=== PATIENT | female | born 1990 | race Caucasian/White ===

== ENCOUNTER 2019-02-13 15:48 | Emergency (ER) | payer SELFPAY ==
--- OUTSIDE RECORDS SUMMARY | 2019-02-13 16:23 | XMS REPORT | Continuity of Care Document ---
:1990 Author Organization [facility] Address [address], [place] [id number] Phone Care Team Providers Name Role Phone Ayah Griffin Unavailable Unavailable Allergies, Adverse Reactions, Alerts Substance Reaction Status amoxicillin Anaphylaxis Active Penicillins Anaphylaxis Active POTASSIUM CLAVULANATE Anaphylaxis Active AMOXICILLIN TRIHYDRATE Anaphylaxis Active Medications Medication Instructions Dosage Effective Dates Status Comments (start - stop) metronidazole 500 mg 1 tab po bid x 7d - Active tablet (#14) VITAMINS Not Available - Active (unknown strength) Problems Condition Effective Dates (start - Clinical Status Comments stop) Acute vaginitis Weeks of gestation of not specified Encounter for test, result positive Frequency of micturition Encounter for test, result negative Human immunodeficiency virus [HIV] - counseling Encounter for initial prescription of contraceptive pills Acute vaginitis 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 Other Entry Level Programmer.Svc. STI Entry Level Programmer.Svc. POS PREG DESIRED NOW REFERRAL FOR Results Test Name Date and Time Measure Units Reference Range Abnormal Flag Status Comments Panel Description: High Sensitivity Urine Test Final High Sensitivity Urine 15:04:21 PositiveInternal Quality Final Test Control: Positive Panel Description: Wet Mount Final Wet Mount 15:02:25 Hyphae/Brianda: noBudding yeast: Final noTrich: noClue cells: yes (>=20%)WBCs: noAmine/Whiff test: positivepH: 4.5 Advance Directives Directive Yes / No Effective Date File Name No information Encounters Encounter Practice Location Reason(s) Diagnoses Date Provider Providers Description For Visit Copied on Encounter OFFICE/OUTPA [facility] Vaginal Acute [place] Referring TIENT VISIT, [facility] [place] Discharge vaginitisWeeks of 4-201 Ayah. Provider: NITIN Bach a/o Odor gestation of [address] (chief not [place], [facility], [address] complaint) [address], [address] for test, [place], [address], , [place], Test result positive [place], [place], [place], ([place] [address], [place], [address]. [id number], complaint) [place]. tel:+[phone] tel:[phone] tel:[phone] [facility] Frequency of Robert Referring [facility] [place] micturitionEncounte 2-201 Louann. Provider: Mikala r for 8 [address] test, result [place], [place], [address], [address] immunodeficiency [place], [address], [place], [place], virus [HIV] [place], [place], [place], counseling [address], [place], [address]. [id number], [place]. tel:+ tel:[phone] tel:[phone] [facility] Encounter for [facility] [place] initial 6-201 Andra. Southern prescription of [address] contraceptive [place], [address], [address] [place] vaginitis [place], , [place], [place], [address], [id number], [place]. [place] tel:[phone] [facility] Encntr for c d stripper exam Sep- [facility] (general) (routine) Maria. [facility] w/o abn [address] findingsEncounter [place] [facility], [address], [address] [place] for malignant [place], , [place], neoplasm [place], [place], [place] [address]. [id number], oth general cnsl tel:[phone] [place] and advice on [phone] tel:[phone] for surveillance of contraceptive pills [facility] Encounter for [place] surveillance of [place]. [facility] contraceptive pills [address] [place], [address] [place], , [place], [place], [address]. [id number], tel:[phone] [place] [phone] tel:[phone] [facility] Subacute and Nov- [place]on [facility] chronic Alessandro. [facility] vaginitisNausea [address] [place], [address] [place], , [place], [place], [address]. [id number], tel:[phone] [place] [phone] tel:[phone] [facility] Noninflammatory Jun- [facility] disorder of vagina, Alessandro. [facility] unspecified [address] [place], [address] [place] [place], St, [place], [place], [address]. [id number], tel:[phone] [place] [phone] tel:[phone] Family History Family Member Diagnosis Age At Onset 1st degree relative No hx of cancer of breast, colon, endometrium or ovary 1st degree relative No hx of venous thromboembolism Immunizations Vaccine Date Status Comments No Known Immunization history Payers Payer name Insurance type Covered democrat ID Authorization(s) No information Social History Type Description Quantity Date Captured Comments Alcohol Use Details Unknown Caffeine Use Details Unknown Tobacco Use Status Current non-smoker Smoking Status Never smoker Non-Smoking Tobacco : No Details Available : No Details Available 2018 Use Details Sex Female Vital Signs Date / Height Weight BMI Pulse Blood Temperature Respiratory Body Head BMI Pulse Inhaled Time: Rate Pressure Rate Surface Circumference percentile Ox Ox Area No information Chief Complaint And Reason For Visit Most recent encounter only, dated 02/11/2019 14:30'. Vaginal Discharge a /o Odor (chief complaint) Test (chief complaint) Reason For Referral Reason For Referral No information Plan Of Treatment Date Type Action Status Appointment [facility] CANCELLED History Of Present Illness Encounter Date Complaint History Of Present Illness No information Functional Status Date Functional Assessment No information Medications Administered Medication Instructions Dosage Effective Dates (start - stop) Status Comments No information Instructions Date Instruction Additional Information No information Assessments Type Assessment Date assessment Acute vaginitis assessment Weeks of gestation of not specified assessment Encounter for test, result positive Goals Health Concern Goal Type Priority Status Date No information Medical Equipment Description Device Huntley Device Identifier Effective Dates (start - stop ) Status No information Mental Status Date Cognitive Assessment Normal Orientation Health Concerns Observation Date No information Concern Status Date No information
--- NOTE | 2019-02-13 16:25 | ED ---
- HPI Summary HPI Summary: A 28 y/o female who is 5 weeks presents to [facility] with a chief complaint of intermittent back and lower abdominal pain today. She rates her pain as a 6/10 in severity. She went to [facility] and claims that they were concerned for ectopic . This is her first . She denies any vaginal bleeding or discharge. She also reports a lot of nausea. - History of Current Complaint Chief Complaint: EDOBProblems Stated Complaint: 5 WEEKS PREG LOW BACK PAIN Time Seen by Provider: 02/13/19 16:21 Hx Obtained From: Patient Chief Complaint: Pain, Other: - concern for ectopic Onset/Duration: Started Hours Ago, Still Present Timing: Intermittent, Lasting Minutes Severity: Moderate Current Severity: Moderate Pain Intensity: 6 - out of 10 Location of Pain: Other: - back and lower abominal pain Character: Other: - pain radiating to back Aggravating Factors: Nothing Alleviating Factors: Nothing Associated Signs and Symptoms: Positive: Back Pain, Nausea. Negative: Fever, Vaginal Bleeding or Discharge - Allergies/Home Medications Allergies/Adverse Reactions: Allergies Allergy/AdvReac Type Severity Reaction Status Date / Time amoxicillin Allergy See Comment Verified 02/13/19 16:07 Home Medications: Home Medications Metronidazole 500 mg PO BID 02/13/19 [History Confirmed 02/13/19] PMH/Surg Hx/FS Hx/Imm Hx Endocrine/Hematology History: Denies: Hx Diabetes Cardiovascular History: Denies: Hx Hypercholesterolemia, Hx Hypertension Infectious Disease History: No Infectious Disease History: Denies: Traveled Outside the [place] in Last 30 Days - Family History Known Family History: Positive: Other - GIST- father - Social History Alcohol Use: None Substance Use Type: Reports: None Smoking Status (MU): Never Smoked Tobacco Review of Systems Negative: Fever Positive: Abdominal Pain, Nausea Positive: other - negative: vaginal bleeding or discharge Positive: Myalgia - back pain All Other Systems Reviewed And Are Negative: Yes Physical Exam - Summary Physical Exam Summary: VITAL SIGNS: Reviewed. GENERAL: Patient is a well-developed and nourished FEMALE who is lying comfortable in the stretcher. Patient is not in any acute respiratory distress. HEAD AND FACE: No signs of trauma. No ecchymosis, hematomas or skull depressions. No sinus tenderness. EYES: PERRLA, EOMI x 2, No injected conjunctiva, no nystagmus. EARS: Hearing grossly intact. Ear canals and tympanic membranes are within normal limits. MOUTH: Oropharynx within normal limits. NECK: Supple, trachea is midline, no adenopathy, no JVD, no carotid bruit, no c- spine tenderness, neck with full ROM. CHEST: Symmetric, no tenderness at palpation LUNGS: Clear to auscultation bilaterally. No wheezing or crackles. CVS: Regular rate and rhythm, S1 and S2 present, no murmurs or gallops appreciated. ABDOMEN: Lower abdominal tenderness more on right than left. No signs of distention. No rebound no guarding, and no masses palpated. Bowel sounds are normal. EXTREMITIES: FROM in all major joints, no edema, no cyanosis or clubbing. NEURO: Alert and oriented x 3. No acute neurological deficits. Speech is normal and follows commands. SKIN: Dry and warm. - Physical Exam Triage Information Reviewed: Yes Vital Signs Reviewed: Yes Diagnostics - Vital Signs Vital Signs Temp Pulse Resp BP Pulse Ox 02/13/19 15:53 99.1 F 90 18 157/103 98 - Laboratory Result Diagrams: 02/13/19 16:51 02/13/19 16:51 Lab Statement: Any lab studies that have been ordered have been reviewed, and results considered in the medical decision making process. Course/Dx - Course Assessment/Plan: A 28 y/o female who is 5 weeks presents to [facility] with a chief complaint of intermittent back and lower abdominal pain today. She rates her pain as a 6/10 in severity. She went to [facility] and claims that they were concerned for ectopic . This is her first . She denies any vaginal bleeding or discharge. She also reports a lot of nausea. Test results without any significant abnormality, urinalysis is negative for UTI. Positive ketones. Patient is . In the ED course the patient was given IV fluids and Zofran for the nausea and vomiting. Blood test results without any significant abnormality except for potassium level of 3.4 glucose 103 and total bili is 2. Patient is still awaiting for the ultrasound report therefore the patient will be signed out to Dr. Mckeon to follow up the ultrasound report and further disposition the patient. - Diagnoses Provider Diagnoses: Discharge - Sign-Out/Discharge Documenting (check all that apply): Sign-Out Patient Signing out patient TO: Jaron Elfar - pending ultrasound Patient Received Moderate/Deep Sedation with Procedure: No - Discharge Plan Condition: Stable Disposition: HOME Patient Education Materials: (ED) Referrals: [facility] [Outside] - 3 Days Maribel Bright MD [Medical Doctor] - 3 Days Additional Instructions: PLEASE RETURN TO THE ED IMMEDIATELY FOR WORSENING OR CONCERNING SYMPTOMS. FOLLOW UP WITH YOUR PRIMARY CARE PHYSICIAN AND OBGYN WITHIN THREE DAYS. - Billing Disposition and Condition Condition: STABLE Disposition: Home - Attestation Statements Document Initiated by Scribe: Yes Documenting Scribe: Boaz Ontiveros Provider For Whom Scribe is Documenting (Include Credential): Anupam Buckley MD Scribe Attestation: I, Boaz Ontiveros, scribed for Anupam Buckley MD on 02/14/19 at 0731. Scribe Documentation Reviewed: Yes Provider Attestation: The documentation as recorded by the Boaz evans accurately reflects the service I personally performed and the decisions made by me, Anupam Buckley MD Status of Scribe Document: Viewed
[2019-02-13] MEDS ORDERED: Ondansetron INJ* 2 MG/ML VIAL IV ONE (16:34)
[2019-02-13] MEDS ORDERED: NS 0.9% 1000 ML** 1,000 ML IV ONE (16:34)
[2019-02-13 17:02] LABS: ABS Lymphocytes 1.8 10^3/ul (1.0-4.8); ABS Monocytes 0.5 10^3/ul (0-0.8); ABS Neutrophils 4.7 10^3/ul (1.5-7.7); Eosinophil % 0.3 %; Hematocrit 41 % (35-47); Hemoglobin 13.7 g/dL (12.0-16.0); Lymphocyte % 25.8 %; Mean Corpuscular HGB Conc 33 g/dL (31-36); Mean Corpuscular Hemoglobin 30 pg (27-31); Mean Corpuscular Volume 89 fL (80-97); Mean Platelet Volume 8.1 fL (7.4-10.4); Platelet Count 217 10^3/uL (150-450); Red Cell Distribution Width 13 % (10.5-15); White Blood Count 7.2 10^3/uL (3.5-10.8)
[2019-02-13 17:06] LABS: Urine Appearance Clear; Urine Bilirubin Negative (Negative); Urine Blood Negative (Negative); Urine Color Amber; Urine Glucose Negative (Negative); Urine Ketones Trace (Negative); Urine Nitrite Negative (Negative); Urine Protein Negative (Negative); Urine Specific Gravity 1.024 (1.010-1.030); Urine Urobilinogen Negative (Negative)
[2019-02-13 17:29] LABS: Albumin 4.5 g/dL (3.2-5.2); BUN/Creatinine Ratio 12.1 (8-20); Calcium 9.3 mg/dL (8.6-10.3); EGFR African American 149.8 (>60); EGFR Non-African American 123.8 (>60); Globulin 2.2 g/dL (2-4); Potassium 3.4 mmol/L (3.5-5.0); Total Protein 6.7 g/dL (6.4-8.9)
--- NOTE | 2019-02-13 19:12 | ED ---
Progress - Progress Note Progress Note: Patient is received as a sign out from Dr. Buckley to Dr. Mckeon at 1900 02/13/19 shift change pending transvaginal US results. TRANSVAGINAL US IMPRESSION: Early intrauterine with estimated gestational age of 5 weeks and 4 days. This report was reviewed by Dr. Mckeon. Course/Dx - Course Course Of Treatment: Patient is received as a sign out from Dr. Buckley to Dr. Mckeon at 1900 02/13/19 shift change pending transvaginal US results. TRANSVAGINAL US IMPRESSION: Early intrauterine with estimated gestational age of 5 weeks and 4 days. Patient will be discharged to home with PCP and OBGYN follow up. - Diagnoses Provider Diagnoses: Discharge - Sign-Out/Discharge Documenting (check all that apply): Patient Departure - discharge Patient Received Moderate/Deep Sedation with Procedure: No - Discharge Plan Condition: Stable Disposition: HOME Patient Education Materials: (ED) Referrals: Maribel Bright MD [Medical Doctor] - 3 Days Care [facility] [Outside] - 3 Days Additional Instructions: PLEASE RETURN TO THE ED IMMEDIATELY FOR WORSENING OR CONCERNING SYMPTOMS. FOLLOW UP WITH YOUR PRIMARY CARE PHYSICIAN AND OBGYN WITHIN THREE DAYS. - Attestation Statements Document Initiated by Scribe: Yes Documenting Scribe: CAMRON GTZ Provider For Whom Giulianaibmartha is Documenting (Include Credential): YURI MCKEON MD Scribe Attestation: CAMRON Forde, scribed for YURI MCKEON MD on 02/13/19 at 2023. Status of Scribe Document: Ready
[2019-02-13 20:17] VITALS: BP 136/98
== END 2019-02-13 20:16 | disposition home or self-care (01) ==
LOC: ED 15:48
DX: O26.891 Other specified pregnancy related conditions, first trimester (principal); R10.30 Lower abdominal pain, unspecified; M54.5 Low back pain; R11.0 Nausea; Z3A.01 Less than 8 weeks gestation of pregnancy; Z88.0 Allergy status to penicillin
CPT/HCPCS: 36415; 76817; 80053; 81003; 84702; 85025; 86850; 86900; 86901; 96360; 99282; J2405

== ENCOUNTER 2019-10-09 12:16 | Inpatient (IN) | payer BC ==
[2019-10-09] MEDS ORDERED: Buffered Lidocaine 1% SYRIN* 1 ML/SYRINGE INTRADERM ONE (13:08)
[2019-10-09] MEDS ORDERED: Lactated Ringers 1000 ML Bag* 1,000 ML IV ONE (13:08)
[2019-10-09] MEDS ORDERED: Misoprostol TAB* 100 MCG PO ONE (13:26)
[2019-10-09] MEDS ORDERED: Misoprostol TAB* 100 MCG ONE (13:50)
[2019-10-09] MEDS ORDERED: Lactated Ringers 1000 ML Bag* 1,000 ML IV SCH (14:00)
--- NOTE | 2019-10-09 14:16 | HP ---
General Information - Reason for Visit Pt here with prelabor rupture of membranes which occurred at 0000 today. Pt with intermittent ctx but not in active labor. - General Information Maternal Age: 29 Grav: 1 Para: 0 SAB: 0 IEA: 0 Estimated Due Date: 10/12/19 Determined By: LMP Gestational Age in Weeks/Days: 39 4/7 Maternal Blood Type and Rh: A Positive - Results this Serology/RPR Result: Non-Reactive Rubella Result: Immune HBsAg Result: Negative HIV Result: Negative GBS Culture Result: Negative Past Medical History Delivery History: See Records - Primigravida Pertinent Past Medical History: See Records - superficial venous thrombosis Past Medical History Comment: Pentec[employer] (refuses all blood products) Pertinent Past Surgical History: None Pertinent Family History: Non-Contributory - Antepartal Records Antepartal Records: Reviewed, Complicated by: - superficial venous thrombosis Review of Systems Constitutional: Comfortable CV Complaint: No Respiratory: Shortness of Breath: No Gastrointestinal: No Nausea/Vomiting, Normal Bowel Movement Genitourinary: Leaking Fluid, No Dysuria, No Bleeding Musculoskeletal: No Epigastric Pain, Contractions Neurological: No Headache, No Visual Changes Movement: Normal Exam Allergies/Adverse Reactions: Allergies amoxicillin Allergy (Verified 02/13/19 16:07) See Comment chest pain, nausea metronidazole Allergy (Verified 10/09/19 13:07) Unknown Reaction Details T-98.7, P-76, R-20, BP-139/87, O2-100% - Measurements Height: 6 ft 1 in Weight: 86.636 kg Weight in lbs: 191.824751 Body Mass Index (BMI): 25.2 Pre- Weight: 66.224 kg Weight Gained This : 45 lbs and 0 ozs - Exam Breast: Breast Exam Deferred CVA: No CVA Tenderness Extremities: No Edema Heart: Normal Rhythm/Heart Sounds HEENT: No Significant Findings Lungs: Clear Bilaterally Rectal: Rectal Exam Deferred Reflexes: DTR 2+ Thyroid: No Thyromegaly - Abdominal Exam Abdomen Exam: Non-Tender, Fundal Height Consistent with Dates - Ultrasound/Biophysical Profile Ultrasound Status: Not Done Targeted Exam Findings See L&D Outpatient Visit Provider Note for Findings: N/A Estimated Weight: 7.5# Cervical Exam: 1cm - 1-2 cm Effacement: 60% Station: -2 Presenting Part: Vertex Membrane Status: SROM Amniotic Fluid Evaluation: Gross Rupture Bleeding/Discharge: None EFM Findings - External Monitor Findings Baseline Heart Rate: 125 External Monitor Findings: Accelerations Present, No Pattern of Variable or Late Decelerations, Variability Moderate, Baseline Stable Contractions: Irregular, Mild Assessment/Plan - Assessment 29 year old at 39 4/7 weeks gestation with prelabor rupture of membranes. No evidence of chorioamnionitis or acidemia. BPs mildly elevated. - Plan Plan: Cervical Ripening, Admit - Anticipate Vaginal Delivery Plan Comment: Discissed options for proceeding with pt and . Advised recommend augmentation of labor as no active labor has ensued and we are > 12 hours post ROM. Discussed Pitocin vs misoprostol. With pt's agreement will do one dose of misoprostol and consider Pitocin 4 hours later if needed. - Date/Time of Admission Date of Admission: 10/09/19 Time of Admission: 13:54
[2019-10-09 14:38] LABS: Urine Appearance Cloudy; Urine Bilirubin Negative (Negative); Urine Blood 3+ (Negative); Urine Color Yellow; Urine Glucose Negative (Negative); Urine Ketones Negative (Negative); Urine Nitrite Negative (Negative); Urine Protein Negative (Negative); Urine Specific Gravity 1.002 (1.010-1.030); Urine Urobilinogen Negative (Negative)
[2019-10-09 14:40] LABS: Urine Bacteria 1+ (Absent); Urine Red Blood Cell 1+(3-5/hpf) (Absent); Urine Squamous Epithelial Cell Present (Absent); Urine White Blood Cell 2+(11-20/hpf) (Absent)
[2019-10-09 15:30] LABS: ABS Basophils 0.1 10^3/ul (0-0.2); ABS Lymphocytes 2.2 10^3/ul (1.0-4.8); ABS Monocytes 0.6 10^3/ul (0-0.8); ABS Neutrophils 5.6 10^3/ul (1.5-7.7); Eosinophil % 0.4 %; Hematocrit 40 % (35-47); Hemoglobin 13.9 g/dL (12.0-16.0); Mean Corpuscular HGB Conc 35 g/dL (31-36); Mean Corpuscular Hemoglobin 32 pg (27-31); Mean Corpuscular Volume 90 fL (80-97); Mean Platelet Volume 9.9 fL (7.4-10.4); Platelet Count 172 10^3/uL (150-450); Red Blood Count 4.43 10^6 /uL (3.70-4.87); Red Cell Distribution Width 14 % (10-15); White Blood Count 8.4 10^3/uL (3.5-10.8)
--- NOTE | 2019-10-09 15:37 | PN ---
Progress Note - Progress Note Date of Service: 10/09/19 SOAP: Subjective: Pt reports feeling some ctx, some stronger than other, tolerable. Objective: FHR: Single deceleration lasting 3 minutes to yasemin of 90. Currently Baseline 125/ moderate variability/ + accels/ no decels UCs: 5-10 minutes, mild BP: 141/83 Urine dip negative for protein Assessment: Pt with ROM x 15 hours undergoing cervical ripening/ augmentation of labor, with elevated BPs and negative proteinuria. Currently FHR not reflective of acidemia. Plan: Will continue to monitor FHR continuously for at least another hour. Continue to monitor ctx pattern. If not in active labor at 4 hours post misoprostol will recommend Pitocin.
[2019-10-09 16:12] LABS: ALT 13 U/L (7-52); Albumin 3.3 g/dL (3.2-5.2); Albumin/Globulin Ratio 1.2 (1-3); Alkaline Phosphatase 149 U/L (34-104); BUN/Creatinine Ratio 13.2 (8-20); Blood Urea Nitrogen 7 mg/dL (6-24); CO2 Carbon Dioxide 20 mmol/L (22-32); Chloride 106 mmol/L (101-111); EGFR Non-African American 136.4 (>60); Globulin 2.7 g/dL (2-4); Glucose 91 mg/dL (70-100); Sodium 137 mmol/L (135-145)
[2019-10-09 16:38] LABS: Urine Benzodiazepine Screen None Detected (None Detect); Urine Opiates Screen None Detected (None Detect)
[2019-10-09 16:48] LABS: Anion Gap 11 mmol/L (2-11)
[2019-10-09] MEDS ORDERED: Labetalol IV* 5 MG/ML 20 ML VIAL IV PUSH ONE (18:16)
[2019-10-09] MEDS ORDERED: Labetalol IV* 5 MG/ML 20 ML VIAL ONE (18:19)
[2019-10-09] MEDS ORDERED: OBEPIDURAL* 250 ML EPIDURAL ONE (18:26)
--- NOTE | 2019-10-09 18:35 | PN ---
Progress Note - Progress Note Date of Service: 10/09/19 SOAP: Subjective: Pt increasingly uncomfortable with ctx. Objective: Pt with elevated BPs as high as 160/95, repeatedly. Consulted with Dr. Ferrell, recommended administration of IV Labatelol 20 mg. Most recent BP 141/94. FHR: Baseline 125/ moderate variability/ + accels/ no decels UCs: 4-6 minutes Cervix: 3-4cm/ 80%/ -2/ vtx Membranes ruptured 19 hours Temp 98.8 Assessment: Pt with gestational hypertension without proteinuria. No evidence of acidemia. Making good cervical change, appears to be getting into active labor. Plan: Monitor BPs closely. Epidural for pain relief. Continue to consult with Dr. Ferrell re management. Consider Pitocin if ctx space out following epidural.
[2019-10-09] MEDS ORDERED: Famotidine TAB* 20 MG PO PRN (21:12)
[2019-10-09] MEDS ORDERED: Sodium Citrate/Citric Acid* 15 ML UDC PO PRN (21:12)
--- NOTE | 2019-10-09 21:13 | PN ---
Progress Note - Progress Note Date of Service: 10/09/19 SOAP: Subjective: Pt comfortable with epidural, going to try to sleep. Objective: Cervical exam deferred as pt continuing to contract and has had ruptured membranes x 21 hours FHR: Baseline 120/ moderate variability/ + accels/ no decels UCs: 4-6 minutes BP: 127/83 Temp: 97.4 Assessment: Pt comfortable, no evidence of acidemia or chorioamnionitis. BP stable. Plan: Will recheck cervix in an hour, consider Pitocin augmentation if ctx space out or if minimal/ no cervical change.
[2019-10-09] MEDS ORDERED: OBEPIDURAL* 250 ML EPIDURAL SCH (22:00)
--- NOTE | 2019-10-09 22:09 | PN ---
Progress Note - Progress Note Date of Service: 10/09/19 Note: Pt resting comfortably in bed. Ctx every 3-7 minutes. FHR Category I. Will do trial of low dose Pitocin augmentation. Cervical exam deferred at this time.
[2019-10-09] MEDS ORDERED: Oxytocin in LR* 20 UNITS/1,000 ML BAG IVPB SCH (23:00)
--- NOTE | 2019-10-09 23:31 | PN ---
Progress Note - Progress Note Date of Service: 10/09/19 SOAP: Subjective: Pt resting comfortably with epidural. Objective: FHR: Baseline 120/ moderate variability/ early decels/ no accels UCs: 2-6 minutes, coupling BP: 113/64 Temp: 97.4 Pitocin at 2 mu/min Assessment: Pt with prolonged rupture of membranes x 23.5 hours. Comfortable. No evidence of acidemia or chorioamnionitis. Plan: Continue Pitocin augmentation. Recheck cervix in a couple hours or as needed.
--- NOTE | 2019-10-10 02:56 | PN ---
Progress Note - Progress Note Date of Service: 10/10/19 SOAP: Subjective: Pt reports increased sense of pressure with ctx but remains comfortable Objective: Cervix: fully dilated, +1, vtx FHR: Baseline 120/ moderate variability/ + accels/ occasional variable decels UCs: 2-5 minutes BP: 139/91 Temp: 98.1 Assessment: Pt fully dilated and ready to push. Variable decels suggest possible cord compression, do not suspect acidemia at this time. Plan: Begin pushing efforts. Anticipate .
[2019-10-10] MEDS ORDERED: Glycerin ADULT SUPP PR PRN (04:17)
[2019-10-10] MEDS ORDERED: Dibucaine 1% 28.35 GM TUBE PR PRN (04:17)
[2019-10-10] MEDS ORDERED: Misoprostol TAB* 200 MCG PR ONE (04:17)
[2019-10-10] MEDS ORDERED: Witch Hazel PAD* JAR TOPICAL PRN (04:17)
--- NOTE | 2019-10-10 04:40 | PROCNOTE ---
[facility] OB: Delivery Note - Delivery A Date of : 10/10/19 Time of : 03:48 Hobbs Sex: Female Weight at : 3.435 kg Score 1 Minute: 9 Score 5 Minutes: 9 Gestational Age in Weeks and Days at Delivery: 39 Weeks and 5 Days Delivery Method: Spontaneous Vaginal Labor: Spontaneous Did Patient attempt ?: N/A, No Previous Amniotic Fluid: Clear Anesthesia/Analgesia: CEI for Labor Delivered By: Gem [facility] Nursery Level of Nursery: Regular/Bedside - Perineum Perineal Injury: None/Intact Perineal Repair: None - Events Delivery Events of Note: Pitocin During Labor, Post- Bleeding - Meds Given , Other - elevated maternal BP during labor, Labetalol given x1 - Additional Delivery Notes Additional Delivery Notes: Pt experienced prelabor rupture of membranes to clear fluid 10/09/19 around midnight. Pt elected expectant management, and awaited spontaneous labor at home for about 12 hours. When that did not ensue pt came in to hospital and had one round of oral misoprostol, which was followed by onset active labor. Pt's BPs were elevated and Dr. Ferrell was consulted. Single dose of Labetalol was administered, with good effect. Pt requested and received an epidural with good pain relief. Pt's contractions spaced out and labor was augmented by low dose Pitocin. Pt progressed steadily to full dilation and was coached on pushing. Pt pushed effectively with ctx, gradually bringing baby to . Pt coached through slow, controlled delivery of the head. Shoulders followed with gentle traction, and infant placed on maternal abdomen with vigorous cry and good tone, HR>100. After cord pulsation ceased cord clamped x2 and cut by pt 's sister in law. Placenta soon delivered with gentle cord traction and maternal push, rueda side. Bleeding initially brisk, Pitocin started at 250 cc / hr and fundal massage performed with good effect. Cytotec 800 mcg administered OR to be on the safe side as pt does not accept blood products. Bleeding has been minimal since, fundus firm. Examination of the perineum revealed it to be intact. Examination of the placenta revealed two accessory lobes, one about 3cm in diameter, the other about 4x8 cm in diameter, connected by blood vessels through the membranes. Placenta appeared to be intact. Pt and infant stable at this time, . Anticipate normal course.
[2019-10-10] MEDS ORDERED: Oxytocin in LR* 20 UNITS/1,000 ML BAG IVPB SCH (05:00)
[2019-10-10] MEDS ORDERED: Lactated Ringers 1000 ML Bag* 1,000 ML IV SCH (05:00)
[2019-10-10 05:53] LABS: Potassium Redraw 3.7 mmol/L (3.5-5.0)
[2019-10-10] MEDS: Ibuprofen TAB* 600 MG PO PRN ×3 (08:02→21:06)
[2019-10-10] MEDS: Acetaminophen TAB* 325 MG PO PRN ×4 (08:03→22:29)
[2019-10-10] MEDS: Docusate CAP* 100 MG PO SCH ×3 (08:03→21:06)
[2019-10-11] MEDS: Ibuprofen TAB* 600 MG PO PRN ×3 (03:13→17:01)
[2019-10-11] MEDS: Acetaminophen TAB* 325 MG PO PRN ×3 (03:14→12:52)
[2019-10-11 06:40] LABS: ABS Eosinophils 0.1 10^3/ul (0-0.6); ABS Lymphocytes 2.3 10^3/ul (1.0-4.8); ABS Monocytes 0.6 10^3/ul (0-0.8); ABS Neutrophils 6.9 10^3/ul (1.5-7.7); Eosinophil % 1.2 %; Hematocrit 36 % (35-47); Hemoglobin 12.5 g/dL (12.0-16.0); Lymphocyte % 23.3 %; Mean Corpuscular HGB Conc 35 g/dL (31-36); Mean Corpuscular Hemoglobin 32 pg (27-31); Mean Corpuscular Volume 90 fL (80-97); Mean Platelet Volume 9.1 fL (7.4-10.4); Platelet Count 153 10^3/uL (150-450); Red Blood Count 3.96 10^6 /uL (3.70-4.87); Red Cell Distribution Width 14 % (10-15)
[2019-10-11] MEDS: Docusate CAP* 100 MG PO SCH ×3 (07:38→21:15)
[2019-10-11] MEDS ORDERED: Ferrous Gluconate TAB* 324 MG TAB PO SCH (09:00)
[2019-10-12] MEDS: Ibuprofen TAB* 600 MG PO PRN (00:30)
[2019-10-12] MEDS: Acetaminophen TAB* 325 MG PO PRN (03:39)
[2019-10-12 09:25] VITALS: BP 139/79
[2019-10-12] MEDS: Docusate CAP* 100 MG PO SCH (09:31)
== END 2019-10-12 11:20 | disposition home or self-care (01) | DRG 560 ==
LOC: MCHOBOUT 12:16 → MCHOB 13:54
PROVIDERS: ADMIT Midwife; ATTEND Midwife
PROC: 10E0XZZ Delivery of Products of Conception, External Approach (ICD-10-PCS; principal; 2019-10-10)
PROC: 4A1HXCZ Monitoring of Products of Conception, Cardiac Rate, External Approach (ICD-10-PCS; 2019-10-10)
DX: O42.12 Full-term premature rupture of membranes, onset of labor more than 24 hours following rupture (principal); O22.23 Superficial thrombophlebitis in pregnancy, third trimester; Z37.0 Single live birth; O72.1 Other immediate postpartum hemorrhage; O43.193 Other malformation of placenta, third trimester; O13.4 Gestational [pregnancy-induced] hypertension without significant proteinuria, complicating childbirth; O76 Abnormality in fetal heart rate and rhythm complicating labor and delivery; Z88.0 Allergy status to penicillin; Z3A.39 39 weeks gestation of pregnancy; Z88.1 Allergy status to other antibiotic agents
CPT/HCPCS: 36415; 80053; 80307; 81003; 81015; 84550; 85025; 86850; 86900; 86901; 87077; 87086; A9270-GY; S0191

== ENCOUNTER 2019-10-17 10:13 | Emergency (ER) | payer BC ==
[2019-10-17 10:43] LABS: ABS Basophils 0.1 10^3/ul (0-0.2); ABS Eosinophils 0.1 10^3/ul (0-0.6); ABS Lymphocytes 2.1 10^3/ul (1.0-4.8); ABS Monocytes 0.4 10^3/ul (0-0.8); Eosinophil % 1.6 %; Hematocrit 41 % (35-47); Hemoglobin 13.9 g/dL (12.0-16.0); Lymphocyte % 31.9 %; Mean Corpuscular HGB Conc 34 g/dL (31-36); Mean Corpuscular Hemoglobin 31 pg (27-31); Mean Corpuscular Volume 91 fL (80-97); Nucleated Red Blood Cells % 0.1; Platelet Count 281 10^3/uL (150-450); Red Cell Distribution Width 14 % (10-15); White Blood Count 6.6 10^3/uL (3.5-10.8)
--- NOTE | 2019-10-17 10:47 | ED ---
HPI Cardiac - HPI Summary HPI Summary: Patient is a 29 y/o F presenting to the ED for a chief complaint of hypertension. Patient is present with her sister and her infant. Patient was sent to the ED by her OB to rule out preeclampsia. Patient gave vaginally on 10/10/19 at 39 weeks gestation without complications. This is her first . During her , she was slightly hypertensive. Since the , she reports having a headache and blurred vision on 10/16/19 that has since improved and is described as a fuzzy halo. Patient denies similar symptoms in the past. She notes some abdominal pain since the . The dysuria she had after the has since resolved. Any numbness or weakness in her extremities is denied. No aggravating or alleviating factors are reported. Any significant PMHx or PSHx is denied. Patient denies alcohol, tobacco, or drug use. Medications reviewed. Allergies noted. - History of Current Complaint Chief Complaint: EDHypertension Stated Complaint: HIGH BLOOD PRESSURE PER PT Time Seen by Provider: 10/17/19 10:18 Hx Obtained From: Patient Onset/Duration: Atraumatic, Still Present Timing: Constant Initial Severity: Mild Current Severity: None Pain Intensity: 0 Pain Scale Used: 0-10 Numeric Aggravating Factor(s): Nothing Alleviating Factor(s): Nothing Associated Signs and Symptoms: Positive: Headaches, Abdominal Pain, Other: - Positive blurred vision. Negative: Numbness, Weakness - Allergy/Home Medications Allergies/Adverse Reactions: Allergies Allergy/AdvReac Type Severity Reaction Status Date / Time amoxicillin Allergy See Comment Verified 10/17/19 10:18 metronidazole Allergy Unknown Verified 10/17/19 10:18 Reaction Details PMH/Surg Hx/FS Hx/Imm Hx Previously Healthy: Yes Endocrine/Hematology History: Denies: Hx Diabetes Cardiovascular History: Denies: Hx Hypercholesterolemia, Hx Hypertension Sensory History: Denies: Hx Legally Blind, Hx Deafness Opthamlomology History: Denies: Hx Legally Blind EENT History: Denies: Hx Deafness - Surgical History Surgical History: None Surgery Procedure, Year, and Place: None Infectious Disease History: No Infectious Disease History: Denies: Traveled Outside the [place] in Last 30 Days - Family History Known Family History: Positive: Other - GIST- father - Social History Occupation: Employed Full-time Lives: With Family Alcohol Use: None Hx Substance Use: No Substance Use Type: Reports: None Hx Tobacco Use: No Smoking Status (MU): Never Smoked Tobacco Review of Systems Positive: Blurred Vision Positive: Other - Positive hypertension Positive: Abdominal Pain Positive: dysuria - Resolved Positive: Headache. Negative: Weakness, Numbness All Other Systems Reviewed And Are Negative: Yes Physical Exam - Summary Physical Exam Summary: Constitutional: Well-developed, Well-nourished, Alert. (-) Distressed Skin: Warm, Dry HENT: Normocephalic; Atraumatic Eyes: Conjunctiva normal Neck: Musculoskeletal ROM normal neck. (-) JVD, (-) Stridor, (-) Tracheal deviation Cardio: Rhythm regular, rate normal, Heart sounds normal; Intact distal pulses. Radial pulses are 2+ and symmetric. (-) Murmur Pulmonary/Chest wall: Effort normal. (-) Respiratory distress, (-) Wheezes, (-) Rales Abd: Soft. (-) Tenderness, (-) Distension, (-) Guarding, (-) Rebound Musculoskeletal: (-) Edema Lymph: (-) Cervical adenopathy Neuro: Alert, Oriented x3, Strength normal, Cranial nerves II-XII are grossly intact. (-) Dysmetria, (-) Nystagmus, (-) Ataxia by finger to nose testing, (-) Sensory deficit. Psych: Mood and affect Normal Triage Information Reviewed: Yes Vital Signs On Initial Exam: Initial Vitals Temp Pulse Resp BP Pulse Ox 97.4 F 79 16 162/115 100 10/17/19 10:14 10/17/19 10:14 10/17/19 10:14 10/17/19 10:14 10/17/19 10:14 Vital Signs Reviewed: Yes Procedures - Sedation Patient Received Moderate/Deep Sedation with Procedure: No Diagnostics - Vital Signs Vital Signs Temp Pulse Resp BP Pulse Ox 10/17/19 10:14 97.4 F 79 16 162/115 100 - Laboratory Lab Results: Lab Results 10/17/19 Range/Units 10:34 WBC 6.6 (3.5-10.8) 10^3/uL RBC 4.50 (3.70-4.87) 10^6 /uL Hgb 13.9 (12.0-16.0) g/dL Hct 41 (35-47) % MCV 91 (80-97) fL MCH 31 (27-31) pg MCHC 34 (31-36) g/dL RDW 14 (10-15) % Plt Count 281 (150-450) 10^3/uL MPV 8.0 (7.4-10.4) fL Neut % (Auto) 59.8 % Lymph % (Auto) 31.9 % Henderson % (Auto) 5.9 % Eos % (Auto) 1.6 % Baso % (Auto) 0.8 % Absolute Neuts (auto) 4.0 (1.5-7.7) 10^3/ul Absolute Lymphs (auto) 2.1 (1.0-4.8) 10^3/ul Absolute Monos (auto) 0.4 (0-0.8) 10^3/ul Absolute Eos (auto) 0.1 (0-0.6) 10^3/ul Absolute Basos (auto) 0.1 (0-0.2) 10^3/ul Absolute Nucleated RBC 0.0 10^3/ul Nucleated RBC % 0.1 Result Diagrams: 10/17/19 10:34 10/17/19 10:34 Lab Statement: Any lab studies that have been ordered have been reviewed, and results considered in the medical decision making process. Disposition - Course Course Of Treatment: Patient is here with headache and hypertension after she gave one week ago. Patient was sent in for suspected preeclampsia. Patient was hypertensive upon arrival but her headache has improved. Patient did have some visual symptoms yesterday. Patient has no bowel tenderness. Patient had blood performed which was grossly unremarkable. Patient has no protein in her urine, has normal LFTs, no thrombocytopenia. HOSPITAL EDUCATOR was called and he recommended starting labetalol 100 mg twice a day and outpatient follow- up - Diagnoses Provider Diagnoses: hypertension - Physician Notifications Discussed Care Of Patient With: Maribel Bright - At 12:22, Dr. Bright recommends the patient start Labetalol and follow up in her office. Time Discussed With Above Provider: 12:22 Instructed by Provider To: Have Pt Call For Appt. Discharge ED - Sign-Out/Discharge Documenting (check all that apply): Patient Departure - Discharge - Discharge Plan Condition: Stable Disposition: HOME Prescriptions: Labetalol TAB* [Trandate TAB*] 100 mg PO BID 30 Days #60 tab Patient Education Materials: Hypertension (ED) Referrals: [facility] [Outside] Maribel Bright MD [Medical Doctor] - Additional Instructions: PLEASE RETURN TO EMERGENCY DEPARTMENT FOR VISION CHANGES, ONE-SIDED WEAKNESS, SEVERE ABDOMINAL PAIN, SEIZURE, OR ANY NEW OR WORSENING SYMPTOMS. Please follow up with your primary care physician and Dr. Bright in 3-4 days. Please make all follow-ups in 1-3 days unless I advise you otherwise. Start your prescribed medications. - Billing Disposition and Condition Condition: STABLE Disposition: Home - Attestation Statements Document Initiated by Scribe: Yes Documenting Scribe: Viki Lynch Provider For Whom Scribe is Documenting (Include Credential): Riccardo Asencio MD Scribe Attestation: I, Viki Lynch, scribed for Riccardo Asencio MD on 10/17/19 at 2122. Scribe Documentation Reviewed: Yes Provider Attestation: The documentation as recorded by the Viki evans accurately reflects the service I personally performed and the decisions made by me, Riccardo Asencio MD Status of Scribe Document: Viewed
[2019-10-17 11:01] LABS: Albumin 3.7 g/dL (3.2-5.2); Albumin/Globulin Ratio 1.4 (1-3); Calcium 8.9 mg/dL (8.6-10.3); EGFR African American 140.3 (>60); Globulin 2.7 g/dL (2-4); Potassium 3.7 mmol/L (3.5-5.0); Total Bilirubin 1.2 mg/dL (0.2-1.0); Total Protein 6.4 g/dL (6.4-8.9)
[2019-10-17 11:35] LABS: Urine Appearance Clear; Urine Bilirubin Negative (Negative); Urine Blood Negative (Negative); Urine Color Yellow; Urine Glucose Negative (Negative); Urine Ketones Negative (Negative); Urine Nitrite Negative (Negative); Urine Protein Negative (Negative); Urine Specific Gravity 1.009 (1.010-1.030); Urine Urobilinogen Negative (Negative)
[2019-10-17 12:04] LABS: Urine Benzodiazepine Screen None Detected (None Detect); Urine Opiates Screen None Detected (None Detect)
[2019-10-17 13:02] VITALS: BP 140/103
== END 2019-10-17 13:01 | disposition home or self-care (01) ==
LOC: ED 10:13
DX: O16.5 Unspecified maternal hypertension, complicating the puerperium (principal); Z88.0 Allergy status to penicillin; Z88.8 Allergy status to other drugs, medicaments and biological substances
CPT/HCPCS: 36415; 80053; 80307; 81003; 83735; 85025; 99283; G0480